=== PATIENT | male | born 1995 | race Caucasian/White ===

== ENCOUNTER 2019-07-10 21:01 | Emergency (ER) | payer OTHER ==
[~2019-07-10] VITALS: Ht 172.7 cm; Wt 86.2 kg
[2019-07-10 21:03] VITALS: BP 117/74
--- NOTE | 2019-07-10 21:08 | NUR ---
PT AMBULATED TO BED 6
--- NOTE | 2019-07-10 21:10 | NUR ---
23 Y/O M PRESENTS TO ED C/O ABD PAIN ACCOMPANIED BY VOMITING AND DIARRHEA X2 DAYS AND SUBJECTIVE FEVER. PT UNABLE TO HOLD FOOD AND LIQUIDS FOR 2 DAYS. ABD SOFT, AND NON-DISTENDED. NO RESPIRATORY DISTRESS NOTED. SYMMETRICAL CHEST RISE. LUNG SOUNDS CLEAR UPON AUSCULTATION. PMH: DENIES NKA
[2019-07-10] MEDS ORDERED: KETOROLAC 30 MG/ML VIAL IVP ONE (21:15)
[2019-07-10] MEDS ORDERED: ONDANSETRON 4 MG/2 ML VIAL IVP ONE (21:15)
[2019-07-10] MEDS ORDERED: NACL 0.9% 1,000 ML IV ONE ×2 (21:15→22:50)
--- NOTE | 2019-07-10 21:34 | NUR ---
LABS COLLECTED AND WALKED OVER TO LAB.
[2019-07-10 21:38] LABS: HEMOGLOBIN 16.3 g/dL (12.0-18.0); MEAN CORPUSCULAR HEMOGLOBIN 33 pg (27-31); MEAN CORPUSCULAR HGB CONC 35 g/dL (33-37); MEAN CORPUSCULAR VOLUME 94.8 fL (80-94); PLATELET COUNT (AUTO) 400 K/uL (140-450); RED BLOOD CELL COUNT(AUTO) 4.96 MIL/uL (4.20-6.10); RED CELL DISTRIBUTION WIDTH 12.8 % (11.6-13.7); WHITE BLOOD COUNT (AUTO) 17.4 K/uL (4.8-10.8)
[2019-07-10 21:55] LABS: ALBUMIN 4.3 g/dL (3.4-5.0); ANION GAP 20.7 (8-16); CARBON DIOXIDE 19.8 mmol/L (21-32); CREATININE 1.3 mg/dL (0.6-1.3); POTASSIUM 3.5 mmol/L (3.5-5.1); TOTAL BILIRUBIN 0.5 mg/dL (0.0-1.0)
[2019-07-10 21:59] LABS: LYMPHOCYTES % (MANUAL) 3 % (20-46); MONOCYTES % (MANUAL) 4 % (5-12)
--- NOTE | 2019-07-10 22:41 | NUR ---
NADR. PT REPORTS 0/10 PAIN.
[2019-07-10] MEDS ORDERED: MORPHINE SULFATE 2 MG/ML SYR IVP ONE (23:25)
--- NOTE | 2019-07-10 23:47 | NUR ---
Patient discharged with v/s stable. Written and verbal after care instructions given and explained. Patient alert, oriented and verbalized understanding of instructions. Ambulatory with steady gait. All questions addressed prior to discharge. ID band removed. Patient advised to follow up with PMD. Rx of TRAMADOL AND ZOFRAN given. Patient educated on indication of medication including possible reaction and side effects. Opportunity to ask questions provided and answered.
[2019-07-10 23:49] VITALS: BP 140/91
--- NOTE | 2019-07-11 15:42 | NUR ---
LATE ENTRY- 0.9% NORMAL SALINE IV FLUIDS DISCONTINUED AT 2347.
== END 2019-07-10 23:47 | disposition home or self-care (01) ==
LOC: MED 21:01
DX: A08.4 Viral intestinal infection, unspecified (principal); R11.2 Nausea with vomiting, unspecified
CPT/HCPCS: 36415; 80053; 83690; 85025; 87040; 96361; 96374; 96375; 99284; J1885; J2270; J2405; J7030